=== PATIENT | female | born 1960 ===

== ENCOUNTER 2018-08-24 19:29 | Emergency (ER) | payer SELFPAY ==
[2018-08-24 19:41] VITALS: TEMP 98.2; O2SAT 98
[2018-08-24] MEDS ORDERED: Sodium Chloride 0.9% 1,000 ML IV STA (20:08)
[2018-08-24] MEDS ORDERED: Morphine 4 MG/ML VIAL ONE (20:54)
[2018-08-24] MEDS ORDERED: Morphine 4 MG/ML VIAL IVP STA (20:55)
[2018-08-24 21:09] LABS: BASO # 0.1 K/uL (0.0-0.2); BASO % 1.6 % (0.0-2.0); EOS # 0.6 K/uL (0.0-0.7); EOS % 9.7 % (0.0-4.0); HEMOGLOBIN 11.8 g/dL (12.0-16.0); LYMPH % 31.8 % (20.0-40.0); MEAN CELL VOLUME 84.9 fl (81.0-99.0); MEAN CORPUSCULAR HEMOGLOBIN 28.9 pg (27.0-31.0); MEAN PLATELET VOLUME 8.8 fl (7.2-11.7); MONO # 0.6 K/uL (0.0-0.8); MONO % 9.9 % (0.0-10.0); NRBC % 0.1 % (0.0-0.0); RBC 4.08 Mil/uL (3.80-5.20); RED CELL DISTRIBUTION WIDTH 16.4 % (11.5-14.5); WHITE BLOOD COUNT 6.3 K/uL (4.8-10.8)
[2018-08-24 21:15] LABS: SQUAMOUS EPITHIAL 5 /hpf (0-5); URINE BACTERIA RARE (<OCC); URINE BILIRUBIN NEGATIVE (NEGATIVE); URINE BLOOD LARGE (NEGATIVE); URINE CLARITY CLOUDY (Clear); URINE COLOR YELLOW (YELLOW); URINE GLUCOSE (UA) NEG (NEGATIVE); URINE PROTEIN NEGATIVE (NEGATIVE); URINE UROBILINOGEN 0.2-1.0 mg/dL (0.2-1.0)
[2018-08-24 21:17] LABS: URINE LEUKOCYTE ESTERASE NEGATIVE Leu/uL (Negative)
[2018-08-24 21:19] LABS: BLOOD UREA NITROGEN 17 mg/dl (7-17); CALCIUM 8.9 mg/dL (8.4-10.2); GFR NON-AFRICAN AMERICAN > 60
[2018-08-24 21:31] LABS: BARBITURATES, UR NEGATIVE (NEGATIVE); BENZODIAZEPINES, UR NEGATIVE (NEGATIVE); OPIATES, UR POSITIVE (NEGATIVE); PHENCYCLIDINE, UR NEGATIVE (NEGATIVE)
--- NOTE | 2018-08-24 22:34 | ED PDOC ---
HPI: Back Time Seen by Provider: 08/24/18 20:02 Chief Complaint (Nursing): Back Pain Chief Complaint (Provider): Back Pain History Per: Patient History/Exam Limitations: no limitations Onset/Duration Of Symptoms: Days (x 1) Current Symptoms Are (Timing): Still Present Quality Of Discomfort: "Pain" Additional Complaint(s): 58 year old female with a history of HTN and kidney stones presents to the ED with right flank pain associated with nausea and dry heaving since this morning. Pain was mild this morning and became worse as the day progressed. She also complains of some burning on urination and reports seeing some blood in her urine. Patient states she had two kidney stones in the past that passed spontaneously and that this pain feels similar. Denies fever and chills. PMD: none provided - Risk Factors AAA Risk Factors: Pos: Older Than 49 Years Of Age, Hypertension Past Medical History Reviewed: Historical Data, Nursing Documentation, Vital Signs Vital Signs: Last Vital Signs Temp 98.2 F 08/24/18 19:36 Pulse 97 H 08/24/18 19:36 Resp 16 08/24/18 19:36 BP 182/134 H 08/24/18 19:36 Pulse Ox 98 08/24/18 19:36 - Medical History PMH: Kidney Stones (x 2) - Surgical History Surgical History: No Surg Hx - Family History Family History: States: Unknown Family Hx - Home Medications Home Medications: Ambulatory Orders Medication Instructions Recorded Docusate Sodium [Dulcolax Stool 100 mg PO DAILY #12 capsule 08/24/18 Softener] - Allergies Allergies/Adverse Reactions: Allergies Allergy/AdvReac Type Severity Reaction Status Date / Time NSAIDS (Non-Steroidal Allergy SHORTNESS Verified 08/24/18 19:39 Anti-Inflamma OF BREATH Penicillins Allergy RASH Verified 08/24/18 19:39 shrimp Allergy SHORTNESS Verified 08/24/18 19:39 OF BREATH Review of Systems ROS Statement: Except As Marked, All Systems Reviewed And Found Negative Constitutional: Negative for: Fever, Chills Gastrointestinal: Positive for: Nausea, Vomiting (dry heaving) Genitourinary Female: Positive for: Dysuria (mild), Hematuria Musculoskeletal: Positive for: Back Pain (right flank pain) Physical Exam - Reviewed Nursing Documentation Reviewed: Yes Vital Signs Reviewed: Yes - Physical Exam Appears: Positive for: Uncomfortable Head Exam: Positive for: ATRAUMATIC, NORMAL INSPECTION, NORMOCEPHALIC Skin: Positive for: Normal Color, Warm, Dry Eye Exam: Positive for: EOMI, Normal appearance, PERRL Neck: Positive for: Normal, Painless ROM, Supple Cardiovascular/Chest: Positive for: Regular Rate, Rhythm Respiratory: Positive for: Normal Breath Sounds. Negative for: Respiratory Distress Gastrointestinal/Abdominal: Positive for: Normal Exam, Soft. Negative for: Tenderness Back: Positive for: R CVA Tenderness Extremity: Positive for: Normal ROM. Negative for: Deformity Neurologic/Psych: Positive for: Alert, Oriented. Negative for: Motor/Sensory Deficits - Laboratory Results Result Diagrams: 08/24/18 21:06 08/24/18 21:06 - ECG O2 Sat by Pulse Oximetry: 98 (RA) Pulse Ox Interpretation: Normal Medical Decision Making Medical Decision Makin:08 MDM: Impression is renal colic. Otherwise, patient is stable. Possibly opiate dependent as well. Orders: --CT Abd & Pelvis --BMP --UDS --CBC --Lidocaine 85 mg in NS IV --Morphine 4 mg IVP --NS IV 1,000 ml --Zofran 4 mg IVP --Urine cx --UA 1057PM CT of the abdomen and pelvis without contrast Clinical statement: Pain. Technique: Multiple axial CT images were obtained from the base of the lungs to the floor of the pelvis utilizing 5 mm axial slices without administration of contrast. Coronal and sagittal reconstructions were also obtained. DLP 285.20 Comparison: None. Findings: Chest: The visualized lung bases are clear. Abdomen: The kidneys are normal in size bilaterally. There is chronic appearing right-sided hydronephrosis. There is no evidence of nephrolithiasis. The left renal collecting system appears unremarkable. The liver, spleen, pancreas, gallbladder and adrenal glands are unremarkable. The aorta demonstrates normal caliber and contour. There is no abdominal lymphadenopathy or ascites. Pelvis: Moderate amount of stool fills the colon. The bowel is otherwise unremarkable, with no obstructive or inflammatory changes. The urinary bladder is within normal limits. There is no pelvic lymphadenopathy or ascites. The other pelvic structures appear unremarkable. Bones: There are no suspicious osseous abnormalities seen. Surgical fusion from L4 through S1 with interpedicular screws at L4 and S1 are noted. Old fracture involving L2 vertebral body. Impression: 1. Moderate constipation. No obstructive or inflammatory bowel changes. 2. Right-sided hydronephrosis which appears to be chronic. No discrete obstructing stones or masses are appreciated. There is no evidence of hydroureter. If there is further clinical concern, ultrasound may be helpful for further evaluation. Electronically signed on Aug 24, 2018 10:57:50 PM EST by: Marcelino Villalta M.D., MBA Certified By [facility] [employer] Trained MRI and CT Specialist --Patient asking for more pain medication, offered patient non-opiate choices for medication given + opiates in urine and discrepancy in patient's story, who is now saying that she took a percocet that belonged to her nephew earlier --Patient adament that she told triage nurse that she took percocet earlier; triage nurse Adia states there was no mention of this earlier --Advised patient of results and advised renal ultrasound, patient refusing, stating that she has to take a flight to [place] --Advised followup with urology and primary care, stool softeneners, and plenty of fluids --Well appearing upon discharge, fully ambulatory, vitals improved Scribe Attestation: Documented by Corine Herrera acting as a scribe for Navjot Negrete MD Provider Scribe Attestation: All medical record entries made by the Scribe were at my direction and personally dictated by me. I have reviewed the chart and agree that the record accurately reflects my personal performance of the history, physical exam, medical decision making, and the department course for this patient. I have also personally directed, reviewed, and agree with the discharge instructions and disposition. Disposition - Clinical Impression Clinical Impression: Constipation - Disposition Referrals: [facility] Mathis [Outside] Disposition: Routine/Home Disposition Time: 23:00 Condition: IMPROVED Additional Instructions: Please followup with your primary care doctor and a urologist as soon as possible. Your urine culture is pending, if there is a positive growth, a corporate sales representative from the hospital will contact you. Prescriptions: Docusate Sodium [Dulcolax Stool Softener] 100 mg PO DAILY #12 capsule Instructions: Constipation in Adults Forms: [facility] ([place])
[2018-08-24] MEDS ORDERED: Lidocaine 85 MG in Sodium Chloride 0.9% 100 ML IV STA (22:43)
[2018-08-25 03:12] VITALS: BP 155/90; PULSE 82; RESP 21
--- NOTE | 2018-08-25 09:14 | CT ---
Date of service: 08/24/2018 PROCEDURE: CT Abdomen and Pelvis without intravenous contrast HISTORY: hx of kidney stone, R flank pain COMPARISON: None. TECHNIQUE: Technique. Contrast dose: Radiation dose: Total exam DLP = 285.2 mGy-cm. This CT exam was performed using one or more of the following dose reduction techniques: Automated exposure control, adjustment of the mA and/or kV according to patient size, and/or use of iterative reconstruction technique. FINDINGS: LOWER THORAX: Unremarkable. LIVER: Unremarkable. No gross lesion or ductal dilatation. GALLBLADDER AND BILE DUCTS: Unremarkable. PANCREAS: Unremarkable. No gross lesion or ductal dilatation. SPLEEN: Unremarkable. ADRENALS: Unremarkable. No mass. KIDNEYS AND URETERS: Chronic right hydronephrosis to the level of the UPJ. Only mild parenchymal loss suggested. No evidence of renal calculus or mass. VASCULATURE: Unremarkable. No aortic aneurysm. No aortic atherosclerotic calcification or mural plaque present. BOWEL: Unremarkable. No obstruction. No gross mural thickening. APPENDIX: Unremarkable. Normal appendix. PERITONEUM: Unremarkable. No free fluid. No free air. LYMPH NODES: Unremarkable. No enlarged lymph nodes. BLADDER: Unremarkable. REPRODUCTIVE: Unremarkable. BONES: No acute fracture. OTHER FINDINGS: None. IMPRESSION: Chronic right hydronephrosis to the level of the UPJ. Only mild parenchymal loss suggested. No evidence of renal calculus or mass.
== END 2018-08-24 23:15 | disposition home or self-care (01) ==
LOC: H.ER 19:29
DX: K59.00 Constipation, unspecified (principal); N13.2 Hydronephrosis with renal and ureteral calculous obstruction
CPT/HCPCS: 74176; 80048; 81003; 85025; 87086; 96361; 96374; 96375; 99282; G0480; J2270; J2405; J7030